=== PATIENT | female | born 1975 | race Caucasian/White ===

== ENCOUNTER 2023-06-16 00:47 | Day surgery (SDC) | payer BC, SELFPAY ==
[2023-06-13 08:15] VITALS: BMI 23.6
--- NOTE | 2023-06-13 08:18 | PC.NURSE ---
Report to the Outpatient Waiting Room, entrance under the green pavilion located off [facility], at time 0830 on date 06/16/23. Planned Procedure Time: 1030. Time changes happen often and if your time is changed the preop area will call you the afternoon before. - You and your visitor will be asked to self-screen and do not enter if you have any COVID symptoms. - A mask is optional within the hospital at this time. Patients may have clear liquids (water, carbonated beverages, clear teas, apple juice) until 3 hours prior to surgery with a maximum of 20 ounces. - No food from midnight until time of surgery Take the following medications with a SIP of water the morning of surgery: N/A DO NOT STOP ANY OF YOUR OTHER PRESCRIPTION MEDICATIONS PRIOR TO SURGERY ?EXCEPT THE FOLLOWING Medications to discontinue per physician: N/A Date to take last dose: N/A Please no make-up, nail divehi, hairspray, perfume, deodorant, or body powder the day of surgery. No jewelry (including any body piercings) or valuables the day of surgery, leave them at home. Please take a shower or bath the night before, or the morning of, surgery with an antibacterial soap. Wear comfortable, loose fitting clothing. - Jewelry must be removed prior to entering the operating room. Rings and piercings that are not removed may be cut off. - The hospital will not accept responsibility for valuables. - Please leave all valuables, including medications, at home the day of surgery. If you are going home after surgery, a licensed otr truck driver must drive you home. - NO public transportation without another adult if you receive anesthesia. - We recommend that an adult stay with you for 24 hours following discharge. - We also recommend that you do not drive, make important decision, drink alcoholic beverages, or take any drugs that were not prescribed by your health care provider for at least 24 hours after your discharge time. Follow any additional instructions given to you from your surgeon. If you or anyone in your household have experienced Covid symptoms in the past week, please notify your surgeon or the nurse liaison at the phone number below for possible testing. Telephone instructions given to PT Noemy VEGA and asked if any additional questions and then verbalized understanding. Patient advised to call surgeon office or pre surgery nurse liaison [phone] if any additional questions.
--- NOTE | 2023-06-16 07:22 | WPDHPUPDATE1 ---
History and Physical Update Update Date/Time: 06/16/23 07:22 History and Physical has been reviewed, including an updated exam of the patient. There are NO changes in the patient's condition. Risks, benefits, and alternatives have been discussed and questions answered. Patient agrees to proceed with procedure.
--- NOTE | 2023-06-16 07:23 | PM.HPGS ---
History of Present Illness History of Present Illness Consent: Risks, benefits, and alternatives have been discussed and questions answered. Patient agrees to proceed with procedure. Chief complaint: Menorrhagia Narrative: Becky Kovacs is a 47 year old female with menorrhagia who presents for D&C hysteroscopy. Patient with a history of menorrhagia initially treated by [facility] endometrial ablation in 2019. Patient with initial success but after 2 years the patient began having heavy flow again. Patient was given oral contraceptives in several different brands with minimal success. It was recommended to proceed at this time with D&C hysteroscopy to further evaluate. Pelvic ultrasound reveals a possible submucosal fibroid. Risks of infection, bleeding, perforation, and inability to enter the uterine cavity are reviewed. Possible pathology was also discussed. The patient was given Cytotec for 7 nights prior to the procedure. Review of Systems Review of Systems: not repeated day of surgery; patient states no changes in status PMFSH Past Medical History Medical History (Updated 06/16/23 @ 07:27 by Belen Sandoval MD) Migraines Mitral valve prolapse (normal spontaneous vaginal delivery) X3 Surgical History Surgical History (Updated 06/16/23 @ 07:26 by Belen Sandoval MD) History of endometrial ablation 2019 History of hysteroscopy History of oral surgery Social History Social History (Updated 08/12/19 @ 00:11 by Mulu Pham) Smoking status: Never smoker Alcohol intake: current Alcohol use details: RARE Substance use: never Substance use type: does not use Living arrangements: with family Gender identity (if verbalized by the patient): Female Spiritual care concerns: No Meds Home Medications and Allergies Home Medications Medication Instructions Recorded Confirmed Type No Home Medications 06/13/23 06/13/23 History Allergies Allergy/AdvReac Type Severity Reaction Status Date / Time No Known Allergies Allergy Unknown Unverified 06/13/23 08:15 Exam Const: General: healthy appearing and alert Orientation/consciousness: patient oriented x3 Resp: Effort & Inspection: normal respiratory effort GI: GI Palp: Yes Soft to palpation, No Tenderness to palpation present (GI) and No Palpable mass present : External Female Exam: normal external appearance Speculum Exam - Vagina: normal appearance of the vagina and normal vaginal discharge Speculum Exam - Cervix: normal appearance of the cervix Bimanual exam- vagina & uterus: uterine size normal and consistency normal Bimanual Exam- Adnexa, other: normal adnexae and No adnexal tenderness Neuro: General: patient oriented x3 Assessment and Plan Assessment and plan (1) Menorrhagia: Code(s): N92.0 - Excessive and frequent menstruation with regular cycle Status: Acute Assessment and Plan: Plan to proceed with D&C hysteroscopy
[2023-06-16 09:00] VITALS: BP 126/68; PULSE 83; RESP 16; TEMP 37.2; O2SAT 100
[2023-06-16] MEDS: LACTATED RINGERS 1,000 ML 30 ML IV CONT (09:00)
[2023-06-16] MEDS: ACETAMINOPHEN 500 MG TABLET 1000 MG PO (09:00)
--- NOTE | 2023-06-16 09:25 | P.PNAN_ITS ---
Anes - Initial Pre Proc Eval Procedure: Operation Date: 06/16/23 10:30 Proposed Procedures p Hysteroscopy Dilation and Curettage - Belen Sandoval MD Date/Time: 06/16/23 09:25 Surgeon: Belen Sandoval MD Pre Op Diagnosis: Menorrhagia Patient Data Age: 47 Gender: F Height: 1.65 m Weight: 64.4 kg Allergies Allergy/AdvReac Type Severity Reaction Status Date / Time No Known Allergies Allergy Unknown Unverified 06/13/23 08:15 Home Medications Medication Instructions Recorded Confirmed Type No Home Medications 06/13/23 06/13/23 History Patient hx anesthesia problems: none Family hx anesthesia problems: none Results Review: All pre-operative results and documents have been reviewed as part of the pre- operative evaluation. PMFSH Past Medical History Medical History (Updated 06/16/23 @ 07:27 by Belen Sandoval MD) Migraines Mitral valve prolapse (normal spontaneous vaginal delivery) X3 Surgical History Surgical History (Updated 06/16/23 @ 07:26 by Belen Sandoval MD) History of endometrial ablation 2019 History of hysteroscopy History of oral surgery Social History Social History (Updated 08/12/19 @ 00:11 by Mulu Pham) Smoking status: Never smoker Alcohol intake: current Alcohol use details: RARE Substance use: never Substance use type: does not use Living arrangements: with family Gender identity (if verbalized by the patient): Female Spiritual care concerns: No Anes - Eval Final PreProcedure Day of Procedure 06/16/23 09:25 Patient weight: normal Heart: regular rate and rhythm Lungs: clear to auscultation Airway: Mallampati scale class II Neurological: alert and oriented Last oral intake: >/= 8 hours ASA classification: II Emergent: no Anesthetic plan: proceed Anesthesia type and monitoring: general GIVS and standard monitoring Results Review: All pre-operative results and documents have been reviewed as part of the pre- operative evaluation. Informed Consent: The patient's anesthetic plan and its attendant risks and benefits were discussed with the patient/family/POA. Questions were solicited and answers provided to the satisfaction of the patient/family/POA.
[2023-06-16] MEDS: KETOROLAC 15 MG/ML VIAL (*BKC) IV PUSH (10:50)
[2023-06-16 10:57] VITALS: BP 100/60; PULSE 69; RESP 16; O2SAT 100
--- NOTE | 2023-06-16 11:00 | W.PM.PROC2 ---
Procedure Note - Detailed Date of Procedure 06/16/23 Pre-op Diagnosis Menorrhagia Post-op Diagnosis Same Procedure Performed D&C hysteroscopy with myomectomy Surgeon Belen Sandoval MD Anesthesia MAC Findings Internal cervical stenosis; uterus sounds to 8cm; a large fibroid and the endocervical endometrial junction Description of Procedure The patient is taken to the operating room and placed under anesthesia in the dorsal lithotomy position. She was prepped and draped in usual sterile fashion. [place] speculum was placed in the vagina and the cervix grasped on the anterior lip with a tenaculum. The cervix is noted to have internal stenosis at approximately1.5cm. Os Finders are used and the internal stenosis is passed. The uterus was then sounded to 8cm. The hysteroscope was placed with the above-stated findings the Aveeta resection device is opened and placed. Under direct visualization the fibroid is removed in its entirety. The remainder of the endometrium appears grossly normal. The hysteroscope was removed and the sharp curette used to curette the endometrium until a good uterine cry is noted all areas. All instruments were then removed. Sponge, needle, and instrument counts are correct per the OR staff. Patient was awakened from anesthesia and taken to recovery in stable condition. Estimated Blood Loss 5 Drains No Packing No Pathology Yes (Endometrial shavings and curettings) Complications No immediate complications Condition Stable Disposition PACU
[2023-06-16 11:23] VITALS: BP 102/64; PULSE 67; RESP 16; O2SAT 99
[2023-06-16 11:50] VITALS: BP 99/67; PULSE 57; RESP 16; O2SAT 99
== END 2023-06-16 12:10 | disposition home or self-care (01) ==
PROVIDERS: PCP Family Medicine; Visit Provider Obstetrics & Gynecology Gynecology
PROC: 0U5B8ZZ Destruction of Endometrium, Via Natural or Artificial Opening Endoscopic (ICD-10-PCS; CPT 58563; principal; 2023-06-16 10:30)
DX: D25.9 Leiomyoma of uterus, unspecified (principal); N92.0 Excessive and frequent menstruation with regular cycle; I34.1 Nonrheumatic mitral (valve) prolapse
CPT/HCPCS: 58561; 88305; A9270; J1885; J2250; J2704; J3010; J7120